=== PATIENT | male | born 1950 | race Caucasian/White ===

== ENCOUNTER 2016-11-17 10:33 | Emergency (ER) | payer BC, OTHER ==
[~2016-11-17] VITALS: Ht 177.8 cm; Wt 72.6 kg
[2016-11-17] MEDS ORDERED: MECLIZINE HCL 25 MG TABLET ONE (10:58)
[2016-11-17] MEDS ORDERED: ASPIRIN 81 MG TAB.CHEW ONE (10:58)
[2016-11-17] MEDS ORDERED: ONDANSETRON HCL/PF 4 MG/2 ML VIAL ONE (10:59)
[2016-11-17] MEDS ORDERED: IV SET PRIMARY 1 EA INFUS.SET MC ONE (10:59)
[2016-11-17] MEDS ORDERED: IV NS 0.9% 500 ML IV ONE (10:59)
[2016-11-17] MEDS ORDERED: MECLIZINE HCL 12.5 MG TABLET PO ONE (11:00)
[2016-11-17] MEDS ORDERED: IV NS 0.9% 500 ML BAG IV ONE (11:00)
[2016-11-17] MEDS ORDERED: ASPIRIN 81 MG TAB.CHEW PO ONE (11:00)
[2016-11-17] MEDS ORDERED: ONDANSETRON HCL/PF - ER 4 MG/2 ML VIAL IV ONE (11:00)
[2016-11-17 11:18] LABS: BASOPHILS % (AUTO) 0.1 % (0.0-2.0); DIFF TOTAL % 100 %; EOSINOPHILS % (AUTO) 0.6 % (0.0-6.0); HEMATOCRIT 46 % (39-51); HEMOGLOBIN 15.7 g/dL (13.5-17.5); LYMPHOCYTES # (AUTO) 0.7 /CMM (0.8-4.8); LYMPHOCYTES % (AUTO) 8.6 % (20.0-44.0); MEAN CORPUSCULAR HEMOGLOBIN 30 PG (26.0-33.0); MEAN CORPUSCULAR HGB CONC 34 g/dl (31.0-36.0); MEAN CORPUSCULAR VOLUME 87 fL (80-96); MONOCYTES # (AUTO) 0.3 /CMM (0.1-1.30); MONOCYTES % (AUTO) 3.5 % (2.0-12.0); NEUTROPHILS # (AUTO) 6.8 /CMM (1.8-8.9); NEUTROPHILS % (AUTO) 87.2 % (43.0-81.0); PLATELET COUNT (AUTO) 170 /CMM (150-450); RED BLOOD CELL COUNT(AUTO) 5.29 MIL/uL (4.5-6.0); WHITE BLOOD COUNT (AUTO) 7.8 K/uL (4.3-11.0)
[2016-11-17 11:25] LABS: ANION GAP 10 (5-14); CALCIUM, SERUM 9.1 mg/dL (8.5-10.1); CARBON DIOXIDE 30 mmol/L (21-32); CHLORIDE 102 mmol/L (98-107); GFR 75 mL/min (>60); GLUCOSE 155 mg/dL (74-106); POTASSIUM 3.8 mmol/L (3.5-5.1); SODIUM SERUM 138 mmol/L (136-145); UREA NITROGEN, BLOOD 19 mg/dL (7-18)
[2016-11-17 11:31] LABS: INR 1.04 (0.87-1.13); PROTHROMBIN TIME 10.9 SECS (9.5-12.7)
[2016-11-17 11:35] LABS: TROPONIN I < 0.017 ng/mL (0.00-0.056)
[2016-11-17 12:30] VITALS: BP 130/78
== END 2016-11-17 12:34 | disposition home or self-care (01) ==
LOC: ER 10:35
DX: H81.10 Benign paroxysmal vertigo, unspecified ear (principal); I10 Essential (primary) hypertension; Z91.010 Allergy to peanuts; R79.1 Abnormal coagulation profile
CPT/HCPCS: 36415; 70450-TC; 71010-TC; 80048-TC; 84484-TC; 85025-TC; 85730-TC; A4606; J2405; J7040; J8597; Z7610

== ENCOUNTER 2017-12-29 06:34 | Outpatient (CLI) | payer BC ==
[2017-12-29 09:06] LABS: BASOPHILS % (AUTO) 0.5 % (0.0-2.0); EOSINOPHILS # (AUTO) 0.2 /CMM (0.0-0.7); EOSINOPHILS % (AUTO) 4.6 % (0.0-6.0); HEMATOCRIT 44 % (39-51); LYMPHOCYTES # (AUTO) 0.7 /CMM (0.8-4.8); LYMPHOCYTES % (AUTO) 14.9 % (20.0-44.0); MEAN CORPUSCULAR HEMOGLOBIN 30 PG (26.0-33.0); MEAN CORPUSCULAR HGB CONC 34 g/dl (31.0-36.0); MEAN CORPUSCULAR VOLUME 87 fL (80-96); MONOCYTES # (AUTO) 0.3 /CMM (0.1-1.30); MONOCYTES % (AUTO) 7.4 % (2.0-12.0); NEUTROPHILS # (AUTO) 3.4 /CMM (1.8-8.9); NEUTROPHILS % (AUTO) 72.6 % (43.0-81.0); PLATELET COUNT (AUTO) 283 /CMM (150-450); RDW COEFFICIENT OF VARIATION 13.4 (11.5-15.0); RED BLOOD CELL COUNT(AUTO) 5.08 MIL/uL (4.5-6.0); WHITE BLOOD COUNT (AUTO) 4.7 K/uL (4.3-11.0)
[2017-12-29 09:21] LABS: ALBUMIN 3.9 g/dL (3.4-5.0); BILIRUBIN,TOTAL 0.5 mg/dL (0.2-1.0); CALCIUM, SERUM 9.4 mg/dL (8.5-10.1); CREATININE 0.9 mg/dL (0.6-1.3); POTASSIUM 4.2 mmol/L (3.5-5.1); TOTAL PROTEIN, SERUM 8.1 g/dL (6.4-8.2)
[2017-12-29 09:31] LABS: PROSTATE SPECIFIC ANTIGEN SCR 1.44 ng/mL (0.00-4.00); THYROID STIMULATING HORMONE 1.152 uIU/mL (0.358-3.74)
[2017-12-29 10:03] LABS: APPEARANCE,URINE CLEAR (CLEAR); BILIRUBIN,URINE NEGATIVE (NEGATIVE); BLOOD, URINE TRACE-INTA Ery/uL (NEGATIVE); COLOR,URINE YELLOW (YELLOW); KETONES,URINE NEGATIVE (NEGATIVE); LEUKOCYTE ESTERASE ,URINE NEGATIVE (NEGATIVE); NITRITE, URINE NEGATIVE (NEGATIVE); PROTEIN,URINE NEGATIVE (NEGATIVE); UGLUCOSE NEGATIVE (NEGATIVE); UROBILINOGEN,URINE 0.2 EU/dL (0.2)
[2017-12-29 10:20] LABS: BACTERIA,URINE None seen /HPF (None Seen); RBC,URINE 0-2 /HPF (0-2); SQUAMOUS EPITHELIAL CELL,UR 0-2 /HPF (None Seen)
[2017-12-30 08:10] LABS: *TESTOSTERONE, SERUM 549 ng/dL (264-916)
[2017-12-31 17:11] LABS: *TESTOSTERONE, FREE (DIRECT) 9.4 pg/mL (6.6-18.1)
== END 2017-12-29 23:59 | disposition home or self-care (01) ==
LOC: LAB 06:34
PROVIDERS: ATTEND Legal Medicine
DX: Z00.01 Encounter for general adult medical examination with abnormal findings (principal); R79.89 Other specified abnormal findings of blood chemistry
CPT/HCPCS: 36415; 80053-TC; 80061-TC; 81000-TC; 82728-TC; 82746; 83540-TC; 84153-TC; 84402; 84403; 84439-TC; 84443-TC; 85025-TC; 87086-TC

== ENCOUNTER 2018-12-28 07:16 | Outpatient (CLI) | payer BC ==
[2018-12-28 07:59] LABS: APPEARANCE,URINE CLEAR (CLEAR); BASOPHILS % (AUTO) 0.4 % (0.0-2.0); BILIRUBIN,URINE NEGATIVE (NEGATIVE); BLOOD, URINE 1+ Ery/uL (NEGATIVE); COLOR,URINE YELLOW (YELLOW); EOSINOPHILS % (AUTO) 5.5 % (0.0-6.0); HEMATOCRIT 46 % (39-51); HEMOGLOBIN 15.7 g/dL (13.5-17.5); KETONES,URINE NEGATIVE (NEGATIVE); LEUKOCYTE ESTERASE ,URINE NEGATIVE (NEGATIVE); LYMPHOCYTES # (AUTO) 0.6 /CMM (0.8-4.8); LYMPHOCYTES % (AUTO) 14.4 % (20.0-44.0); MEAN CORPUSCULAR HGB CONC 34 g/dl (31.0-36.0); MEAN CORPUSCULAR VOLUME 89 fL (80-96); MONOCYTES # (AUTO) 0.4 /CMM (0.1-1.30); MONOCYTES % (AUTO) 10.4 % (2.0-12.0); NEUTROPHILS # (AUTO) 2.9 /CMM (1.8-8.9); NEUTROPHILS % (AUTO) 69.3 % (43.0-81.0); NITRITE, URINE NEGATIVE (NEGATIVE); PLATELET COUNT (AUTO) 176 /CMM (150-450); PROTEIN,URINE NEGATIVE (NEGATIVE); UGLUCOSE NEGATIVE (NEGATIVE); UROBILINOGEN,URINE 0.2 EU/dL (0.2); WHITE BLOOD COUNT (AUTO) 4.2 K/uL (4.3-11.0)
[2018-12-28 08:14] LABS: MUCUS,URINE Rare /LPF (None Seen); SQUAMOUS EPITHELIAL CELL,UR Few /HPF (None Seen)
[2018-12-28 08:17] LABS: BACTERIA,URINE Few /HPF (None Seen)
[2018-12-28 08:25] LABS: BILIRUBIN,TOTAL 0.7 mg/dL (0.2-1.0); CALCIUM, SERUM 9.1 mg/dL (8.5-10.1); POTASSIUM 4.3 mmol/L (3.5-5.1); TOTAL PROTEIN, SERUM 7.5 g/dL (6.4-8.2)
[2018-12-28 08:36] LABS: PROSTATE SPECIFIC ANTIGEN SCR 0.89 ng/mL (0.00-4.00); THYROID STIMULATING HORMONE 1.862 uIU/mL (0.358-3.74); URIC ACID 6.8 mg/dL (2.6-7.2)
== END 2018-12-28 23:59 | disposition home or self-care (01) ==
LOC: LAB 07:16
PROVIDERS: ATTEND Legal Medicine
DX: Z00.00 Encounter for general adult medical examination without abnormal findings (principal); I10 Essential (primary) hypertension
CPT/HCPCS: 36415; 80053-TC; 80061-TC; 81000-TC; 82306; 82728-TC; 83540-TC; 84153-TC; 84402; 84403; 84439-TC; 84443-TC; 84550-TC; 85025-TC

== ENCOUNTER 2020-06-17 08:33 | Emergency (ER) | payer BC, OTHER ==
[~2020-06-17] VITALS: Ht 177.8 cm; Wt 72.6 kg
[2020-06-17 08:38] VITALS: BP 168/74
--- NOTE | 2020-06-17 08:50 | NUR ---
COVID SPECIMEN COLLECTED AND SENT TO LAB.
--- NOTE | 2020-06-17 08:54 | NUR ---
Patient discharged to home in stable condition. Written and verbal after care instructions given. Patient verbalizes understanding of instruction.
== END 2020-06-17 08:54 | disposition home or self-care (01) ==
LOC: ER 08:33
DX: Z20.828 Contact with and (suspected) exposure to other viral communicable diseases (principal)
CPT/HCPCS: 99283; C9803; U0003

== ENCOUNTER 2020-06-25 07:06 | Emergency (ER) | payer OTHER ==
[~2020-06-25] VITALS: Ht 180.3 cm; Wt 71.7 kg
[2020-06-25 07:19] VITALS: BP 148/81
--- NOTE | 2020-06-25 07:34 | NUR ---
COVID SWAB SENT TO LAB.
== END 2020-06-25 07:34 | disposition home or self-care (01) ==
LOC: ER 07:06
DX: Z20.828 Contact with and (suspected) exposure to other viral communicable diseases (principal); R03.0 Elevated blood-pressure reading, without diagnosis of hypertension; Z98.890 Other specified postprocedural states; Z91.010 Allergy to peanuts
CPT/HCPCS: 99283; C9803; U0003

== ENCOUNTER 2020-07-04 09:13 | Emergency (ER) | payer OTHER ==
[~2020-07-04] VITALS: Ht 177.8 cm; Wt 70.3 kg
[2020-07-04 09:18] VITALS: BP 123/77
== END 2020-07-04 09:45 | disposition home or self-care (01) ==
LOC: ER 09:14
DX: Z20.828 Contact with and (suspected) exposure to other viral communicable diseases (principal); I10 Essential (primary) hypertension; Z91.010 Allergy to peanuts
CPT/HCPCS: 99283; C9803; U0003

== ENCOUNTER 2020-07-10 06:08 | Emergency (ER) | payer OTHER ==
[~2020-07-10] VITALS: Ht 177.8 cm; Wt 70.3 kg
[2020-07-10 06:11] VITALS: BP 147/92
--- NOTE | 2020-07-11 09:34 | NUR ---
COVID RESULT: NEGATIVE
== END 2020-07-10 07:08 | disposition home or self-care (01) ==
LOC: ER 06:11
DX: Z20.828 Contact with and (suspected) exposure to other viral communicable diseases (principal); Z91.010 Allergy to peanuts; Z98.890 Other specified postprocedural states; R03.0 Elevated blood-pressure reading, without diagnosis of hypertension
CPT/HCPCS: 99283; C9803; U0003

== ENCOUNTER 2020-07-17 08:18 | Emergency (ER) | payer OTHER ==
[~2020-07-17] VITALS: Ht 162.6 cm; Wt 65.3 kg
[2020-07-17 08:26] VITALS: BP 157/87
--- NOTE | 2020-07-17 08:38 | NUR ---
covid 19 swab collected and sent to lab
--- NOTE | 2020-07-17 08:42 | NUR ---
Patient discharged to home in stable condition. Written and verbal after care instructions given. Patient verbalizes understanding of instruction.
== END 2020-07-17 08:42 | disposition home or self-care (01) ==
LOC: ER 08:24
DX: Z20.828 Contact with and (suspected) exposure to other viral communicable diseases (principal); Z91.010 Allergy to peanuts; R03.0 Elevated blood-pressure reading, without diagnosis of hypertension
CPT/HCPCS: 99283; C9803; U0003

== ENCOUNTER 2020-07-24 06:14 | Emergency (ER) | payer OTHER ==
[~2020-07-24] VITALS: Ht 177.8 cm; Wt 68.0 kg
[2020-07-24 06:21] VITALS: BP 141/76
== END 2020-07-24 06:36 | disposition home or self-care (01) ==
LOC: ER 06:16
DX: Z20.828 Contact with and (suspected) exposure to other viral communicable diseases (principal); I10 Essential (primary) hypertension; Z91.010 Allergy to peanuts
CPT/HCPCS: C9803-CS; U0003-CS

== ENCOUNTER 2020-07-31 06:09 | Emergency (ER) | payer OTHER ==
[~2020-07-31] VITALS: Ht 177.8 cm; Wt 68.0 kg
[2020-07-31 06:10] VITALS: BP 139/72
== END 2020-07-31 06:42 | disposition home or self-care (01) ==
LOC: ER 06:09
DX: Z20.828 Contact with and (suspected) exposure to other viral communicable diseases (principal); Z91.010 Allergy to peanuts
CPT/HCPCS: 99283; C9803; U0003

== ENCOUNTER 2020-08-07 06:39 | Emergency (ER) | payer OTHER ==
[~2020-08-07] VITALS: Ht 177.8 cm; Wt 68.0 kg
[2020-08-07 06:40] VITALS: BP 134/62
--- NOTE | 2020-08-07 06:56 | NUR ---
UNABLE TO DEPART DUE TO [employer] APPLICATION ERROR.
== END 2020-08-07 06:56 | disposition home or self-care (01) ==
LOC: ER 06:39
DX: Z20.828 Contact with and (suspected) exposure to other viral communicable diseases (principal); Z91.010 Allergy to peanuts; Z98.890 Other specified postprocedural states
CPT/HCPCS: 99283; C9803; U0003

== ENCOUNTER 2020-08-14 06:11 | Emergency (ER) | payer OTHER ==
[~2020-08-14] VITALS: Ht 177.8 cm; Wt 68.0 kg
[2020-08-14 06:12] VITALS: BP 132/64
== END 2020-08-14 06:36 | disposition home or self-care (01) ==
LOC: ER 06:11
DX: Z20.828 Contact with and (suspected) exposure to other viral communicable diseases (principal)
CPT/HCPCS: 99283; C9803; U0003

== ENCOUNTER 2020-08-21 06:24 | Emergency (ER) | payer OTHER ==
[~2020-08-21] VITALS: Ht 177.8 cm; Wt 68.0 kg
[2020-08-21 06:25] VITALS: BP 132/61
== END 2020-08-21 06:50 | disposition home or self-care (01) ==
LOC: ER 06:24
DX: Z20.828 Contact with and (suspected) exposure to other viral communicable diseases (principal); Z98.890 Other specified postprocedural states; Z91.010 Allergy to peanuts
CPT/HCPCS: 99283; C9803; U0003

== ENCOUNTER 2020-08-28 11:25 | Emergency (ER) | payer OTHER ==
[~2020-08-28] VITALS: Ht 182.9 cm; Wt 70.8 kg
[2020-08-28 11:26] VITALS: BP 141/93
--- NOTE | 2020-08-29 13:24 | NUR ---
COVID RESULT: NEGATIVE
== END 2020-08-28 12:27 | disposition home or self-care (01) ==
LOC: ER 11:28
DX: Z20.828 Contact with and (suspected) exposure to other viral communicable diseases (principal); I10 Essential (primary) hypertension; Z91.010 Allergy to peanuts; Z98.890 Other specified postprocedural states
CPT/HCPCS: 99283; C9803; U0003

== ENCOUNTER 2020-09-04 08:42 | Emergency (ER) | payer OTHER ==
[~2020-09-04] VITALS: Ht 177.8 cm; Wt 63.5 kg
[2020-09-04 08:53] VITALS: BP 152/107
--- NOTE | 2020-09-04 09:00 | NUR ---
CALLED LAB FOR PCR COVID SWAB KIT.
--- NOTE | 2020-09-04 09:14 | NUR ---
COVID SWAB SENT. Patient discharged to home in stable condition. Written and verbal after care instructions given. Patient verbalizes understanding of instruction.
== END 2020-09-04 09:16 | disposition home or self-care (01) ==
LOC: ER 08:43
DX: Z20.828 Contact with and (suspected) exposure to other viral communicable diseases (principal)
CPT/HCPCS: 99283; C9803; U0003

== ENCOUNTER 2020-09-11 06:17 | Emergency (ER) | payer OTHER ==
[~2020-09-11] VITALS: Ht 177.8 cm; Wt 63.5 kg
[2020-09-11 06:20] VITALS: BP 148/85
== END 2020-09-11 06:50 | disposition home or self-care (01) ==
LOC: ER 06:17
DX: Z20.828 Contact with and (suspected) exposure to other viral communicable diseases (principal); Z91.010 Allergy to peanuts; Z98.890 Other specified postprocedural states
CPT/HCPCS: 99283; C9803; U0003

== ENCOUNTER 2020-10-02 09:35 | Emergency (ER) | payer OTHER ==
[~2020-10-02] VITALS: Ht 177.8 cm; Wt 68.0 kg
[2020-10-02 09:38] VITALS: BP 128/75
--- NOTE | 2020-10-02 09:57 | NUR ---
Patient discharged to home in stable condition. Written and verbal after care instructions given. Patient verbalizes understanding of instruction.
== END 2020-10-02 09:58 | disposition home or self-care (01) ==
LOC: ER 09:35
DX: Z20.828 Contact with and (suspected) exposure to other viral communicable diseases (principal); Z91.010 Allergy to peanuts
CPT/HCPCS: 99283; C9803; U0003

== ENCOUNTER 2020-10-20 08:09 | Emergency (ER) | payer OTHER ==
[~2020-10-20] VITALS: Ht 177.8 cm; Wt 68.0 kg
[2020-10-20 08:11] VITALS: BP 121/81
--- NOTE | 2020-10-20 08:44 | NUR ---
covid swab collected and sent to lab
--- NOTE | 2020-10-20 09:21 | NUR ---
Patient discharged to home in stable condition. Written and verbal after care instructions given. Patient verbalizes understanding of instruction.
== END 2020-10-20 09:21 | disposition home or self-care (01) ==
LOC: ER 08:10
DX: Z20.828 Contact with and (suspected) exposure to other viral communicable diseases (principal); Z91.010 Allergy to peanuts
CPT/HCPCS: 99283; C9803; U0003

== ENCOUNTER 2021-06-19 07:20 | Outpatient (CLI) | payer BC ==
[2021-06-19 09:41] LABS: BASOPHILS % (AUTO) 0.5 % (0.0-2.0); EOSINOPHILS % (AUTO) 4.9 % (0.0-6.0); HEMATOCRIT 47 % (39-51); HEMOGLOBIN 16.1 g/dL (13.5-17.5); LYMPHOCYTES # (AUTO) 0.5 K/uL (0.8-4.8); LYMPHOCYTES % (AUTO) 10.6 % (20.0-44.0); MEAN CORPUSCULAR HGB CONC 34 g/dl (31.0-36.0); MEAN CORPUSCULAR VOLUME 88 fL (80-96); MONOCYTES # (AUTO) 0.5 K/uL (0.1-1.30); MONOCYTES % (AUTO) 9.1 % (2.0-12.0); NEUTROPHILS # (AUTO) 3.8 K/uL (1.8-8.9); NEUTROPHILS % (AUTO) 74.9 % (43.0-81.0); PLATELET COUNT (AUTO) 186 K/uL (150-450); RED BLOOD CELL COUNT(AUTO) 5.31 MIL/uL (4.5-6.0); WHITE BLOOD COUNT (AUTO) 5.1 K/uL (4.3-11.0)
[2021-06-19 09:43] LABS: BILIRUBIN,URINE SMALL (NEGATIVE); COLOR,URINE YELLOW (YELLOW); LEUKOCYTE ESTERASE ,URINE NEGATIVE (NEGATIVE); NITRITE, URINE NEGATIVE (NEGATIVE); PH,URINE 5.5 (5.0-8.0); PROTEIN,URINE TRACE mg/dl (NEGATIVE); UGLUCOSE NEGATIVE (NEGATIVE); UROBILINOGEN,URINE 0.2 EU/dL (0.2)
[2021-06-19 10:03] LABS: PROSTATE SPECIFIC ANTIGEN SCR 0.93 ng/mL (0.00-4.00); THYROID STIMULATING HORMONE 1.228 uIU/mL (0.358-3.74); URIC ACID 7.6 mg/dL (2.6-7.2)
[2021-06-19 10:13] LABS: ALBUMIN 4.2 g/dL (3.4-5.0); CREATININE 1.1 mg/dL (0.6-1.3); POTASSIUM 4.3 mmol/L (3.5-5.1); TOTAL PROTEIN, SERUM 7.9 g/dL (6.4-8.2)
[2021-06-19 10:35] LABS: BACTERIA,URINE Moderate /HPF (None Seen); RBC,URINE 0-2 /HPF (0-2); WBC,URINE 0-2 /HPF (0-3)
[2021-06-19 10:36] LABS: SQUAMOUS EPITHELIAL CELL,UR Rare /HPF (None Seen)
== END 2021-06-19 23:59 | disposition home or self-care (01) ==
LOC: LAB 07:20
PROVIDERS: ATTEND Legal Medicine
DX: I10 Essential (primary) hypertension (principal); I25.10 Atherosclerotic heart disease of native coronary artery without angina pectoris; E11.9 Type 2 diabetes mellitus without complications; E78.5 Hyperlipidemia, unspecified; D64.9 Anemia, unspecified; E55.9 Vitamin D deficiency, unspecified; Z00.00 Encounter for general adult medical examination without abnormal findings
CPT/HCPCS: 36415; 80053-TC; 80061-TC; 81001; 82306; 82607-TC; 82728-TC; 83540-TC; 84153-TC; 84402; 84403; 84439-TC; 84443-TC; 84550-TC; 85025-TC

== ENCOUNTER → 2022-11-23 | Outpatient (CLI) | payer BC ==
[2022-11-23 08:52] LABS: BASOPHILS % (AUTO) 0.3 % (0.0-2.0); EOSINOPHILS % (AUTO) 3.5 % (0.0-6.0); HEMATOCRIT 45 % (39-51); LYMPHOCYTES # (AUTO) 0.6 K/uL (0.8-4.8); LYMPHOCYTES % (AUTO) 10.3 % (20.0-44.0); MEAN CORPUSCULAR HGB CONC 33 g/dl (31.0-36.0); MEAN CORPUSCULAR VOLUME 87 fL (80-96); MONOCYTES # (AUTO) 0.5 K/uL (0.1-1.30); MONOCYTES % (AUTO) 9.2 % (2.0-12.0); NEUTROPHILS # (AUTO) 4.2 K/uL (1.8-8.9); NEUTROPHILS % (AUTO) 76.7 % (43.0-81.0); PLATELET COUNT (AUTO) 206 K/uL (150-450); RED BLOOD CELL COUNT(AUTO) 5.17 MIL/uL (4.5-6.0); WHITE BLOOD COUNT (AUTO) 5.5 K/uL (4.3-11.0)
[2022-11-23 09:02] LABS: BILIRUBIN,URINE NEGATIVE (NEGATIVE); COLOR,URINE YELLOW (YELLOW); LEUKOCYTE ESTERASE ,URINE NEGATIVE (NEGATIVE); NITRITE, URINE NEGATIVE (NEGATIVE); PH,URINE 6.5 (5.0-8.0); PROTEIN,URINE NEGATIVE (NEGATIVE); UGLUCOSE NEGATIVE (NEGATIVE); UROBILINOGEN,URINE 0.2 EU/dL (0.2)
[2022-11-23 09:33] LABS: PROSTATE SPECIFIC ANTIGEN SCR 1.3 ng/mL (0.00-4.00); THYROID STIMULATING HORMONE 1.416 uIU/mL (0.358-3.74)
[2022-11-23 09:40] LABS: ALBUMIN 3.6 g/dL (3.4-5.0); BILIRUBIN,TOTAL 0.6 mg/dL (0.2-1.0); CALCIUM, SERUM 9.1 mg/dL (8.5-10.1); CREATININE 0.9 mg/dL (0.6-1.3); POTASSIUM 4.3 mmol/L (3.5-5.1); TOTAL PROTEIN, SERUM 7.4 g/dL (6.4-8.2)
== END | disposition home or self-care (01) ==
LOC: LAB 07:53
PROVIDERS: ATTEND Legal Medicine
DX: Z00.00 Encounter for general adult medical examination without abnormal findings (principal); E29.1 Testicular hypofunction; E11.9 Type 2 diabetes mellitus without complications; N40.0 Benign prostatic hyperplasia without lower urinary tract symptoms; E55.9 Vitamin D deficiency, unspecified; D64.9 Anemia, unspecified; R53.1 Weakness; I10 Essential (primary) hypertension; E03.9 Hypothyroidism, unspecified
CPT/HCPCS: 36415; 72141-TC; 73221-TC; 80053-TC; 80061-TC; 82306; 82607-TC; 82728-TC; 83540-TC; 84153-TC; 84402-TC; 84439-TC; 84443-TC; 84550-TC; 85025-TC

== ENCOUNTER 2022-12-07 07:36 | Outpatient (CLI) | payer BC | END 2022-12-07 23:59 | disposition home or self-care (01) | LOC: CARD 07:36 | PROVIDERS: ATTEND Legal Medicine | DX: M79.601 Pain in right arm (principal); M79.602 Pain in left arm; M25.48 Effusion, other site; G54.3 Thoracic root disorders, not elsewhere classified | CPT/HCPCS: 93930-TC; 93971-TC ==